=== PATIENT | female | born 1950 | race Caucasian/White ===

== ENCOUNTER → 2018-04-11 | Outpatient (CLI) | payer MEDICARE, OTHER ==
[~2018-04-11] MED LIST: LOR5 PO; NO RTN MEDS; PER PO
--- NOTE | 2018-04-11 15:43 | RADIOLOGY IMAGING REPORT ---
FACILITY: [facility] [place] PATIENT NAME: ANAIS LEDESMA : [id number] MR: [id number] V: [id number] EXAM DATE: ORDERING PHYSICIAN: FLASH HOPSON TECHNOLOGIST: Lisa An PROCEDURE:BILATERAL DIAGNOSTIC DIGITAL MAMMOGRAM WITH CAD ASSISTED INTERPRETATION & 3D TOMOSYNTHESIS COMPARISON:Prior mammograms 12/05/2015, 06/11/2014, & 05/15/2013. INDICATIONS:ABNORMAL LEFT BREAST PAIN WHICH HAS RESOLVED. FINDINGS: The breast tissue demonstrates scattered fibroglandular densities. There is no dominant mass, suspicious cluster of microcalcifications or persistent architectural distortion. DIAGNOSTIC CATEGORY 1--NEGATIVE. RECOMMENDATIONS: ROUTINE MAMMOGRAM AND CLINICAL EVALUATION IN 1 YR. IMPRESSION: BIRADS 1: Negative. Dictated by: Silver Tavares M.D. on 04/11/2018 at 14:42 Transcribed by: DAMASO on 04/11/2018 at 15:13 Approved by: Silver Tavares M.D. on 04/11/2018 at 15:42 [facility]
== END ==
LOC: MAMO 00:55
PROVIDERS: ATTEND Family Medicine
DX: N64.4 Mastodynia (principal)
CPT/HCPCS: 77062; 77066